=== PATIENT | male | born 1990 | race Caucasian/White ===

== ENCOUNTER 2017-05-05 22:15 | Emergency (ER) | payer BC, MEDICAID ==
[2017-05-05] MEDS ORDERED: Morphine 2 MG/ML Syringe SUBCUT PRN (22:35)
--- NOTE | 2017-05-05 22:42 | EDM.PDOC ---
ED HPI GENERAL MEDICAL PROBLEM - General Chief Complaint: General Stated Complaint: POSSIBLE RIB FX Time Seen by Provider: 05/05/17 22:30 Source of Information: Reports: Patient, RN, Significant Other History Limitations: Reports: No Limitations - History of Present Illness INITIAL COMMENTS - FREE TEXT/NARRATIVE: 26 yr male presents with left rib pain from fall about 11 feet off of scaphold at home. Pt is alert and having severe pain. States allergic to azithromycin and never has had any pain medicine in past. Doesn't take any medications. Abrasion to left posterior chest. Pt holding back/ribs. Onset: Today Onset Date: 05/05/17 Onset Time: 21:30 Location: Reports: Back - Related Data Allergies Allergy/AdvReac Type Severity Reaction Status Date / Time azithromycin [From Zithromax] Allergy Cannot Verified 02/24/15 11:28 Remember Home Meds: Home Meds NK [No Known Home Meds] 02/24/15 [History] Social & Family History - Tobacco Use Smoking Status *Q: Never Smoker - Recreational Drug Use Recreational Drug Use: No ED ROS GENERAL - Review of Systems Review Of Systems: See Below Constitutional: Reports: Weakness HEENT: Reports: No Symptoms Respiratory: Reports: Other (Pain to chest). Denies: Shortness of Breath Cardiovascular: Reports: Chest Pain. Denies: Dyspnea on Exertion GI/Abdominal: Reports: No Symptoms : Reports: No Symptoms Musculoskeletal: Reports: Back Pain, Leg Pain (right quinonez pain), Other (rib pain. left) Skin: Reports: Other (abrasion to back) Neurological: Reports: No Symptoms Psychiatric: Reports: No Symptoms ED EXAM, GENERAL - Physical Exam Exam: See Below Exam Limited By: No Limitations General Appearance: Alert, No Apparent Distress Eye Exam: Bilateral Eye: PERRL Ears: Normal External Exam, Normal Canal, Hearing Grossly Normal Nose: Normal Inspection Throat/Mouth: Normal Lips, Normal Teeth, Normal Voice Head: Atraumatic, Normocephalic Neck: Supple, Non-Tender Respiratory/Chest: Lungs Clear, Normal Breath Sounds Cardiovascular: Regular Rate, Rhythm GI/Abdominal: Soft, Non-Tender, No Distention (Male) Exam: Other (urine yellow and clear) Extremities: Leg Pain (right quinonez pain with hematoma), Other (ambulatory) Neurological: Alert, Oriented Psychiatric: Normal Affect, Normal Mood Skin Exam: Warm, Dry, Normal Color Course - Vital Signs Last Recorded V/S: Last Vital Signs Temp 98.5 F 05/06/17 00:21 Pulse 93 05/06/17 00:21 Resp 20 05/06/17 00:21 BP 99/65 05/06/17 00:21 Pulse Ox 100 05/06/17 00:21 - Orders/Labs/Meds Orders: Active Orders 24 hr Category Date Time Status Chest wo Cont [CT] Stat Exams 05/05/17 22:22 Taken Morphine Med 05/05/17 22:50 Active 2 mg IVPUSH Q1H PRN Morphine Med 05/05/17 22:35 Active 2 mg SUBCUT Q1H PRN Sodium Chloride 0.9% [Normal Saline] 1,000 ml Med 05/05/17 23:45 Active IV ASDIRECTED Medication Orders Sodium Chloride (Normal Saline) 1,000 mls @ 125 mls/hr IV ASDIRECTED TONIA Last Admin: 05/06/17 00:00 Dose: 125 mls/hr Morphine Sulfate (Morphine) 2 mg SUBCUT Q1H PRN PRN Reason: Pain Last Admin: 05/05/17 22:38 Dose: 2 mg Morphine Sulfate (Morphine) 2 mg IVPUSH Q1H PRN PRN Reason: Pain Last Admin: 05/06/17 00:03 Dose: 2 mg Meds: Medications Generic Name Dose Route Start Last Admin Trade Name Freq PRN Reason Stop Dose Admin Sodium Chloride 1,000 mls @ 125 mls/hr 05/05/17 23:45 05/06/17 00:00 Normal Saline IV 125 mls/hr ASDIRECTED TONIA Administration Morphine Sulfate 2 mg 05/05/17 22:35 05/05/17 22:38 Morphine SUBCUT 2 mg Q1H PRN Administration Pain Morphine Sulfate 2 mg 05/05/17 22:50 05/06/17 00:03 Morphine IVPUSH 2 mg Q1H PRN Administration Pain Discontinued Medications Generic Name Dose Route Start Last Admin Trade Name Freq PRN Reason Stop Dose Admin Ondansetron HCl 4 mg 05/06/17 00:04 05/06/17 00:01 Zofran IVPUSH 05/06/17 00:05 4 mg ONETIME ONE Administration - Re-Assessments/Exams Free Text/Narrative Re-Assessment/Exam: 05/05/17 23:[address] Redding for consult, states to contact [facility] for transfer for pneumothorax. Contacted Dr Sanchez, [facility] and states will take admission with consent of surgeon for admit and chest tube. Pt has been stable with SpO2 of 98-100% on room air. Pt is holding left ribs for comfort. MS 5mg sq given for relief of pain. Rates pain 8 out 10. Pt has been sitting in wheelchair and using phone to contact family. Lungs CTA. No shortness of breath. Right quinonez has hematoma and rates pain 1 out 10. States he may have hit his leg on the way down. Fell [address] completed with quick read and report given to Dr Sanchez and surgeon. Will transport fixed wing to [facility]. Unable to use helicopter due to weather conditions/visibility. Expect fixed wing around 00:30. 05/05/17 23:57 Dr Redding here to assess pt and states he doesn't recommend chest tube at this time. States minimal hemothorax and pneumothorax at this time. States to monitor closely for now. 05/06/17 00:15 Dr Redding was able to review CT report and CT with pt and friend. Recommend transfer to [place], [place]. for close monitor and chest tube insertion as indicated. 05/06/17 00:28 Pt was able to stand to void, clear, eze urine, 225. Pt using cell phone and no acute distress noted. UrQ1=949% Pt had Zofran for nausea and states symptoms are relieved. Sitting in wheelchair. 05/06/17 00:52 Pt transferred to [facility]. Departure - Departure Time of Disposition: 00:52 Disposition: DC/Tfer to Acute Hospital 02 Condition: Good Clinical Impression: Hemothorax on left, Rib fracture, Pneumothorax on left, Fall - Discharge Information Forms: ED Department Discharge - My Orders Last 24 Hours: My Active Orders 05/05/17 22:22 Chest wo Cont [CT] Stat 05/05/17 22:35 Morphine 2 mg SUBCUT Q1H PRN 05/05/17 22:50 Morphine 2 mg IVPUSH Q1H PRN 05/05/17 23:45 Sodium Chloride 0.9% [Normal Saline] 1,000 ml IV ASDIRECTED - Assessment/Plan Last 24 Hours: My Active Orders 05/05/17 22:22 Chest wo Cont [CT] Stat 05/05/17 22:35 Morphine 2 mg SUBCUT Q1H PRN 05/05/17 22:50 Morphine 2 mg IVPUSH Q1H PRN 05/05/17 23:45 Sodium Chloride 0.9% [Normal Saline] 1,000 ml IV ASDIRECTED
[2017-05-05] MEDS: Morphine 2 MG/ML Syringe IVPUSH PRN (23:05)
[2017-05-05] MEDS ORDERED: Sodium Chloride 0.9% 1,000 ML IV SCH (23:45)
[2017-05-06] MEDS: Morphine 2 MG/ML Syringe IVPUSH PRN (00:03)
[2017-05-06] MEDS ORDERED: Ondansetron 4 MG/2 ML SDV IVPUSH ONE (00:04)
[2017-05-06 00:24] VITALS: BP 99/65
--- NOTE | 2017-05-06 10:21 | CT ---
DATE OF SERVICE: 05/05/17 CLINICAL DATA: Rib Fx/; r/o Pneumo; fell 11 feet onto concrete UNENHANCED CHEST CT: Multislice acquisition through the chest without IV contrast was performed. No priors. There is extensive ground glass opacity with some consolidation involving the left lower lobe consistent with pulmonary contusion. There are also ground glass opacities noted within the left upper lobe consistent with pulmonary contusion. There is a small left pleural effusion/hemothorax. There is a small left pneumothorax. There are multiple left rib fractures with adjacent soft tissue emphysema and hematoma in the left chest wall. The fractured ribs include the left 5th, 6th, 8th, and 9th ribs. The right lung is clear. The heart size is normal. No pericardial effusion. No evidence of mediastinal hematoma. IMPRESSION: Abnormal exam. Multiple findings consistent with trauma. See above dictation. The patient's physician was notified of the findings by telephone and by [facility] preliminary radiology report. [id number] [facility]
== END 2017-05-06 00:45 ==
LOC: LB.ED 22:15
DX: S22.32XA Fracture of one rib, left side, initial encounter for closed fracture (principal); J94.2 Hemothorax; J93.9 Pneumothorax, unspecified; Z88.1 Allergy status to other antibiotic agents; W17.89XA Other fall from one level to another, initial encounter; Y92.009 Unspecified place in unspecified non-institutional (private) residence as the place of occurrence of the external cause
CPT/HCPCS: 71250; 96361; 96374; 96375; 99284; A0425; A0429; J2270; J2405; J7040; J7030